=== PATIENT | female | born 1935 | race Caucasian/White ===

== ENCOUNTER → 2018-05-25 | Outpatient (CLI) | payer MEDICARE ==
--- NOTE | 2018-05-25 12:29 | CARD ---
MR#: [id number] Date of Study: 05/25/2018 Ordering Physician: MERARY DORAN, Referring Physician: MERARY DORAN, Tech: Vivi Simon APPROVED REPORT EXAM: Two-dimensional and M-mode echocardiogram with Doppler and color Doppler. Other Information Quality : AverageHR: 61bpm INDICATION Bradycardia 2D DIMENSIONS Left Atrium(2D)4.3 (1.6-4.0cm)IVSd1.4 (0.7-1.1cm) Aortic Root(2D)3.2 (2.0-3.7cm)LVDd5.1 (3.9-5.9cm) LVOT Diameter2.0 (1.8-2.4cm)PWd1.0 (0.7-1.1cm) LVDs3.0 (2.5-4.0cm)FS (%) 40.6 % SV86.7 ml Aortic Valve AoV Peak Phong.169.3cm/sAoV VTI39.9cm AO Peak GR.11.5mmHgLVOT Peak Phong.127.8cm/s AO Mean GR.6mmHgAVA (VMAX)2.29cm2 AI P 1/2 [id number] Mitral Valve MV E Uilmylhz40.4cm/sMV DECEL LVHE056qq MV A Vxpppjvh243.8cm/sE/A Ratio0.8 Pulmonary Valve PV Peak Qubfccbq717.0cm/s Tricuspid Valve TR P. Qxikwkah408gm/sRAP RTJXSZHP1ymHn TR Peak Gr.11lwXyLSFC95naWp Pulmonary Vein S1 Buyicmez11.9cm/sD2 Jeyuowsi91.5cm/s PVa iazbruvv603thlj LEFT VENTRICLE The left ventricle is normal size. There is mild concentric left ventricular hypertrophy. The left ve ntricular systolic function is normal and the ejection fraction is within normal range. The Ejection Fraction is 55-60%. There is normal LV segmental wall motion. Transmitral Doppler flow pattern is Gra de I-abnormal relaxation pattern. RIGHT VENTRICLE The right ventricle is normal size. There is normal right ventricular wall thickness. The right ventr icular systolic function is normal. ATRIA The left atrium is borderline dilated. The right atrium size is normal. The interatrial septum is int act with no evidence for an atrial septal defect or patent foramen ovale as noted on 2-D or Doppler i maging. AORTIC VALVE The aortic valve is thickened but opens well. Doppler and Color Flow revealed mild to moderate aortic regurgitation. There is no significant aortic valvular stenosis. MITRAL VALVE The mitral valve is normal in structure and function. There is no evidence of mitral valve prolapse. There is no mitral valve stenosis. Doppler and Color-flow revealed trace mitral regurgitation. TRICUSPID VALVE The tricuspid valve is normal in structure and function. Doppler and Color Flow revealed trace tricus pid regurgitation with an estimated PAP of 36 mmHg. There is no tricuspid valve prolapse or vegetatio n. There is no tricuspid valve stenosis. PULMONIC VALVE The pulmonic valve is not well visualized. Doppler and Color Flow revealed trace to mild pulmonic rajeev vular regurgitation. GREAT VESSELS The aortic root is normal in size. The IVC is normal in size and collapses >50% with inspiration. PERICARDIAL EFFUSION There is no evidence of significant pericardial effusion. Critical Notification Critical Value: No <Conclusion> The left ventricle is normal size. The left ventricular systolic function is normal and the ejection fraction is within normal range. The Ejection Fraction is 55-60%. There is mild concentric left ventricular hypertrophy. There is no significant aortic valvular stenosis. Doppler and Color Flow revealed mild to moderate aortic regurgitation. Doppler and Color-flow revealed trace mitral regurgitation. Doppler and Color Flow revealed trace tricuspid regurgitation with an estimated PAP of 36 mmHg. Signed by : Damien Scott MD Electronically Approved : 05/25/2018 12:29:25
== END | disposition home or self-care (01) ==
LOC: ECHO 09:02
PROVIDERS: ATTEND Family Medicine
DX: I35.1 Nonrheumatic aortic (valve) insufficiency (principal); I51.7 Cardiomegaly; R00.1 Bradycardia, unspecified
CPT/HCPCS: 93306